=== PATIENT | male | born 1955 | race Caucasian/White ===

== ENCOUNTER 2017-03-13 13:49 | Emergency (ER) | payer MEDICARE, OTHER ==
[~2017-03-13] VITALS: Ht 162.6 cm; Wt 90.0 kg
[2017-03-13 13:51] VITALS: BP 134/89; PULSE 97; RESP 20; TEMP 97.8; O2SAT 95
--- NOTE | 2017-03-13 14:17 | PD ---
Physical Exam Date Seen by Provider: March 13, 2017 Time Seen by Provider: 14:12 Narrative Pt reports double vision since Friday. He has a history of the same, 4 times over the last 3 years. Hx of CVA, TIA's. Pt on glipizide, but states he's not diabetic. No associated nausea, vomiting. Feels sinus pressure and started taking Kasia Friday. Pt is a snow bird from [place], no local PCP. Pt states he has an atrophied eye muscle which causes the double vision, he told this by his physician. It usually takes 4-6 weeks for these symptoms to resolve on it own. VSS, awaiting bed placement. Data Data Last Documented VS Vital Signs Date Time Temp Pulse Resp B/P Pulse Ox O2 Delivery O2 Flow Rate FiO2 03/13/17 13:51 97.8 97 20 134/89 95 Room Air [facility] Supervised Visit with JANEL: Anjali Call March 13, 2017 14:16
[2017-03-13] MEDS ORDERED: VALS1TAB63 PO (15:43)
[2017-03-13] MEDS ORDERED: GLIP5TAB8 PO (15:43)
[2017-03-13] MEDS ORDERED: ASPI1TAB69 PO (15:43)
--- NOTE | 2017-03-13 15:54 | PD ---
HPI Chief Complaint: Eye Problems/Injury Time Seen by Provider: 15:50 Travel History International Travel<30 days: No Contact w/Intl Traveler<30days: No Traveled to known affect area: No History of Present Illness HPI 61-year-old male with history of diabetes, hypertension, and CVA, presents to emergency department for evaluation of cold vision. Patient states this started 3 days ago. He states he felt as though he had some sinus congestion and took Kasia and shortly thereafter the blurred vision started. Patient states this has happened in the past about 3 or 4 times and takes about 4-6 months to resolve on its own. He is from [place] and he saw a specialist who told him he had an atrophied muscle along the lateral aspect of his right eyebrow which causes double vision. Patient states when he looks straight forward vision is double. He states each eye independently has very clear, non- double vision. Patient states when he looks to the left at a certain angle he does not have double vision. Patient feels as though his eyes are not coordinated with each other and this is causing his double vision. Denies any headache. No focal deficits or weakness. No trauma. No photophobia. No other symptoms to report at this time. [facility] Past Medical History Cardiovascular Problems: Yes Diabetes: Yes Patient Takes Glucophage: Yes Diminished Hearing: No Hypertension: Yes Respiratory: Yes (sinusitis) Tetanus Vaccination: > 5 Years Influenza Vaccination: No Past Surgical History Genitourinary Surgery: Yes (vsectomy ) Tonsillectomy: Yes Other Surgery: Yes (nose sx) Social History Alcohol Use: Yes (ocassionally) Tobacco Use: No Substance Use: No Allergies-Medications (Allergen,Severity, Reaction): Coded Allergies: No Known Allergies (Unverified , 03/13/17) Reported Meds & Prescriptions Reported Meds & Active Scripts Active Reported Valsartan 40 Mg Tab 40 Mg PO DAILY Glipizide 5 Mg Tab 5 Mg PO BIDAC Take 30 minutes before a meal Aspirin 81 Mg Tabdr 81 Mg PO DAILY Review of Systems Except as stated in HPI: all other systems reviewed are Neg Physical Exam Narrative GENERAL: Male patient, ambulatory with a nonantalgic gait no acute distress SKIN: Focused skin assessment warm/dry. HEAD: Atraumatic. Normocephalic. EYES: Pupils equal and round. No scleral icterus. No injection or drainage. Patient has complete lateral movement to the left and lateral movement to the right with limited abrasion on the right eye. The right eye seems to be lagging with lateral movement to the right. Pupils are equal and reactive. Eyelids close completely and raise without difficulty. They are symmetric. There is no tenderness elicited to palpation around the eye or the temporal artery. Intraocular exam is limited. ENT: No nasal bleeding or discharge. Mucous membranes pink and moist. NECK: Trachea midline. No JVD. CARDIOVASCULAR: Regular rate and rhythm. No murmur appreciated. RESPIRATORY: No accessory muscle use. Clear to auscultation. Breath sounds equal bilaterally. GASTROINTESTINAL: Abdomen soft, non-tender, nondistended. Hepatic and splenic margins not palpable. MUSCULOSKELETAL: No obvious deformities. No clubbing. No cyanosis. No edema. NEUROLOGICAL: Awake and alert. No obvious cranial nerve deficits. Motor grossly within normal limits. Normal speech. PSYCHIATRIC: Appropriate mood and affect; insight and judgment normal. Data Data Last Documented VS Vital Signs Date Time Temp Pulse Resp B/P Pulse Ox O2 Delivery O2 Flow Rate FiO2 03/13/17 16:09 97.8 78 16 130/81 99 03/13/17 13:51 Room Air MDM Medical Decision Making Medical Screen Exam Complete: Yes Emergency Medical Condition: Yes Medical Record Reviewed: Yes Differential Diagnosis Diabetic neuropathy versus migraine versus intraocular pressure versus weakness versus sixth nerve palsy versus Myasthenia gravis versus demyelinating disease versus tumor Narrative Course 61-year-old male presents to the emergency department for evaluation of double vision. Patient's neuro exam is without acute concern except it is noted that the right eye does leg with lateral movement to the right. The patient has history of this in the past that resolved on its own. He has seen a specialist for it. I spoke with my primary care provider who advised calling ophthalmology. [id number] Ramirez athletic turf worker database reporting consultant. He requests the patient follow-up with him tomorrow in his office. He states this is likely a sixth nerve palsy. Patient is given instructions and #4 his office. He agrees to return immediately with any acute worsening of symptoms. Diagnosis Primary Impression: 6Th nerve palsy Qualified Code: H49.21 - 6Th nerve palsy, right Additional Impression: Diplopia Referrals: Sumeet Ramirez MD [address] Ramirez's office in the morning to schedule follow up Primary Care Physician Patient Instructions: Diplopia (ED), General Instructions Additional Instructions: Contact Dr. Rajput's office in the morning to schedule follow-up for tomorrow. Return immediately with any acute worsening of symptoms Med/Other Pt SpecificInfo: No Change to Meds Disposition: 01 DISCHARGE HOME Condition: Stable Maryse Lou March 13, 2017 15:54
[2017-03-13 16:09] VITALS: BP 130/81; TEMP 97.8
== END 2017-03-13 16:08 | disposition home or self-care (01) ==
LOC: NEPD 13:49
DX: H49.21 Sixth [abducent] nerve palsy, right eye (principal); E11.9 Type 2 diabetes mellitus without complications; I10 Essential (primary) hypertension; Z79.84 Long term (current) use of oral hypoglycemic drugs
CPT/HCPCS: 99283